=== PATIENT | female | born 1960 | race Caucasian/White ===

== ENCOUNTER → 2020-01-07 | Outpatient (CLI) | payer OTHER ==
[~2020-01-07] MED LIST: LOSARTAN POTASS50 MG PO
== END ==
LOC: CAT 01-04 14:42
PROVIDERS: ATTEND Family Medicine
DX: Z13.6 Encounter for screening for cardiovascular disorders (principal); I25.10 Atherosclerotic heart disease of native coronary artery without angina pectoris; E78.00 Pure hypercholesterolemia, unspecified

== ENCOUNTER → 2020-03-11 | Outpatient (CLI) | payer BC, OTHER | LOC: RAD 12:19 | DX: M51.36 Other intervertebral disc degeneration, lumbar region (principal); M41.86 Other forms of scoliosis, lumbar region ==

== ENCOUNTER → 2020-03-18 | Outpatient (CLI) | payer OTHER | LOC: MRI 07:10 | DX: M51.16 Intervertebral disc disorders with radiculopathy, lumbar region (principal) ==